=== PATIENT | female | born 1955 ===

== ENCOUNTER → 2019-10-27 | Outpatient (CLI) | payer MEDICARE, OTHER ==
--- NOTE | 2019-10-28 09:49 | SLEEP ---
DATE OF STUDY: 10/27/2019 SLEEP STUDY REFERRING PHYSICIAN: Dr. Cervantes and Dr. Giovanna Ahn. The patient is a 64-year-old who weighs 222 pounds with a BMI of 38. The patient's [place] score was 14. The patient has a history of sleep apnea and has been on CPAP at 12 cm water. The patient has lost 25 pounds since then. The patient was sent to [facility] for reevaluation. During the night study, the patient spent 444 minutes in bed and slept for 353 minutes with a sleep efficiency of 80%. Sleep latency was 31 minutes with a REM latency of 160 minutes. Sleep architecture showed normal stage 1 sleep, increased stage 2 sleep, increased slow wave and reduced REM sleep. During the night study, the patient had 2 obstructive apneas, no central or mixed apneas and 30 hypopneas. The patient's AHI was 5 per hour with a supine AHI of 7 per hour and a REM AHI of 38 per hour. EKG monitoring revealed an average heart rate of 61 beats per minute, no sustained arrhythmias observed. Nocturnal oximetry study revealed a mean oxygen saturation of 90% with lowest of 80%. A 7.6% of time oxygen saturation remained between 80% and 89%. PLMS were seen at index of 19 per hour and 8 per hour caused EEG arousals. Due to low AHI, the patient did not meet the split night criteria for CPAP initiation. IMPRESSION: 1. Mild obstructive sleep apnea with worsening during REM sleep. Total AHI of 5 per hour with a REM AHI of 38 per hour. 2. Nocturnal hypoxia secondary to obstructive sleep apnea. 3. Mild periodic limb movements. RECOMMENDATIONS: 1. The patient did not meet the split night criteria for CPAP initiation. The patient is clinically symptomatic with an [place] score of 14. If the patient has other comorbid conditions, then the patient's sleep apnea can be treated with either CPAP versus oral appliance. 2. Weight loss is strongly advised. 3. Avoid RIGGING [employer]INGER depressants. 4. Cautioned regarding driving until symptoms of sleep apnea have resolved with above recommendations. SOFI RM MD DR: SORAYA/leah JOB#: [id number] / [id number] GRUPO Hull MD, ALANNA MD
== END | disposition home or self-care (01) ==
LOC: SLPLAB 19:15
PROVIDERS: ATTEND Internal Medicine Critical Care Medicine
DX: G47.33 Obstructive sleep apnea (adult) (pediatric) (principal); G47.34 Idiopathic sleep related nonobstructive alveolar hypoventilation
CPT/HCPCS: 95810

== ENCOUNTER → 2019-11-10 | Outpatient (CLI) | payer MEDICARE, OTHER ==
--- NOTE | 2019-11-11 12:22 | SLEEP ---
DATE OF STUDY: 11/10/2019 SLEEP STUDY ATTENDING PHYSICIAN: Giovanna Ahn M.D. INDICATIONS FOR STUDY: The patient is 64 years old who weighs 223 pounds with a BMI of 37. The patient's [place] score was 12. The patient had a previous sleep study and was found to have mild PJ with worsening during REM sleep. Total AHI is 5 per hour with a REM AHI of 38 per hour. Since the patient was clinically symptomatic with an [place] score of 12-14, a CPAP titration study was recommended. The patient underwent CPAP titration study at [facility] on 11/10/2019. During the night study, the patient spent 430 minutes in bed and slept for 270 minutes with a sleep efficiency of 63%. Sleep latency was 26 minutes with a REM latency of 290 minutes. Sleep architecture showed normal stage 1 and stage 2 sleep, increased slow wave, and reduced REM sleep. EKG monitoring revealed no sustained arrhythmias. Average heart rate was 60 beats per minute. PLMs were seen at the index of 12 per hour and 3 per hour caused EEG arousals. The patient was started on CPAP at a pressure of 5 cm water and titrated up to 7 cm water. At the final pressure, the patient slept for 270 minutes. The patient had supine as well as REM sleep. The patient's AHI was reduced to 0 per hour and oxygen saturation remained above 90%. The patient used full face medium-sized mask. IMPRESSION: 1. Sleep apnea diagnosed by previous sleep study. 2. Mild periodic limb movements without any significant EEG arousals. This does not need to be treated. 3. Reduced sleep efficiency resulting from sleep maintenance insomnia. RECOMMENDATIONS: 1. CPAP at 7 cm water completely eliminated the patient's sleep apnea and should be used on a nightly basis. 2. Follow up in 4-6 weeks to assess compliance with CPAP and to document clinical improvement. 3. Weight loss is advised. 4. Avoid [employer] depressants. 5. Cautioned regarding driving until symptoms of sleep apnea resolved with the use of CPAP. 6. If the patient's insomnia persists despite effective use of CPAP, then he should be further evaluated and treated according to the etiology. SOFI RM MD DR: SORAYA/leah JOB#: [id number] / [id number] GIOVANNA Rodriguez MD
== END ==
LOC: RT 19:20
PROVIDERS: ATTEND Internal Medicine Critical Care Medicine
DX: G47.33 Obstructive sleep apnea (adult) (pediatric) (principal); G47.09 Other insomnia; G47.61 Periodic limb movement disorder
CPT/HCPCS: 95811